=== PATIENT | female | born 1945 | race African-American/Black ===

== ENCOUNTER → 2020-07-04 | Day surgery (SDC) | payer MEDICARE, MEDICAID ==
[~2020-07-04] MED LIST: DIAZEPAM; DIGOXIN; DIOVAN; FENTANYL CITRATE/PF 50MCG/ML 2ML VIAL ONE; HEPARIN SODIUM 1,000 UNIT/1ML VIAL IV ONE; IOHEXOL-300 100 ML BOTTLE ONE; LIDOCAINE HCL 1% 20ML VIAL (Pyxis) INJ ONE; METOPROLOL; MIDAZOLAM HCL 2 MG/2 ML VIAL ONE; NICARDIPINE 100MCG/ML 10ML VIAL (CATH LAB) IV ONE; NITROGLYCERIN 50MCG/ML 10ML VIAL (CATH LAB) IV ONE; VICODIN
== END | disposition home or self-care (01) ==
LOC: CCL 11:54
PROVIDERS: ATTEND Specialist
DX: R07.9 Chest pain, unspecified (principal); I25.10 Atherosclerotic heart disease of native coronary artery without angina pectoris; Z79.899 Other long term (current) drug therapy; Z98.890 Other specified postprocedural states
CPT/HCPCS: 93458; 93571; C1769; C1887; C1893; J1644; J2250; J3010; J3490; Q9967

== ENCOUNTER 2022-06-04 16:45 | Emergency (ER) | payer MEDICARE, MEDICAID ==
[~2022-06-04] VITALS: Ht 160 cm; Wt 77.0 kg
[~2022-06-04 16:45] MED LIST changes: -DIAZEPAM; -DIOVAN; -FENTANYL CITRATE/PF 50MCG/ML 2ML VIAL ONE; -HEPARIN SODIUM 1,000 UNIT/1ML VIAL IV ONE; -IOHEXOL-300 100 ML BOTTLE ONE; -LIDOCAINE HCL 1% 20ML VIAL (Pyxis) INJ ONE; -METOPROLOL; -MIDAZOLAM HCL 2 MG/2 ML VIAL ONE; -NICARDIPINE 100MCG/ML 10ML VIAL (CATH LAB) IV ONE; -NITROGLYCERIN 50MCG/ML 10ML VIAL (CATH LAB) IV ONE
[2022-06-04] MEDS ORDERED: ONDANSETRON HCL 4MG/2ML INJ IV STA (17:08)
[2022-06-04] MEDS ORDERED: MORPHINE SULFATE 4 MG/ML CPJ (NOT FOR IM USE) IV STA (17:08)
[2022-06-04 18:37] LABS: BASOPHILS % 0.5 % (0.0-2.0); EOSINOPHILS % 0.8 % (0.0-5.0); HEMATOCRIT. 37.4 % (36.0-48.0); HEMOGLOBIN. 12.2 g/dL (12.0-16.0); LYMPHOCYTES % 11.3 % (20.0-50.0); MEAN CORPUSCULAR HEMOGLOBIN 27.9 pg (28.0-32.0); MEAN CORPUSCULAR VOLUME 85.8 fL (81.0-99.0); MEAN PLATELET VOLUME 9.8 fl (7.4-10.4); MONOCYTES % 10.7 % (2.0-8.0); NEUTROPHILS % 76.7 % (40.0-76.0); PLATELET 177 x1000/uL (130-400); RED BLOOD CELL COUNT 4.37 mill/uL (4.2-5.4); RED CELL DISTRIBUTION WIDTH 14.5 % (11.6-14.6)
[2022-06-04 18:45] LABS: INR 1.1; PROTHROMBIN TIME 12.1 sec (9.6-11.0)
[2022-06-04 18:50] LABS: CHLORIDE 97 mEq/L (98-107)
[2022-06-04] MEDS ORDERED: POTASSIUM CHLORIDE 20MEQ TABLET SR PO NR (19:15)
[2022-06-04] MEDS ORDERED: HYDR-4001 MT (20:22)
[2022-06-04 21:27] VITALS: BP 139/72
== END 2022-06-04 21:31 | disposition home or self-care (01) ==
LOC: ER 16:45
DX: S43.491A Other sprain of right shoulder joint, initial encounter (principal); M79.671 Pain in right foot; I10 Essential (primary) hypertension; J45.909 Unspecified asthma, uncomplicated; Z98.1 Arthrodesis status; W06.XXXA Fall from bed, initial encounter; Y93.89 Activity, other specified; Y92.018 Other place in single-family (private) house as the place of occurrence of the external cause
CPT/HCPCS: 36415; 70450; 71045; 72125; 73030; 73630; 80053; 85025; 85610; 96374; 96375; 99285; J2270; J2405; A4565

== ENCOUNTER 2023-04-07 20:50 | Inpatient (IN) | payer MEDICARE, MEDICAID ==
[~2023-04-07] VITALS: Ht 154.9 cm; Wt 70.8 kg
[~2023-04-07 20:50] MED LIST changes: +HYDR-4001 MT
[2023-04-07 21:00] VITALS: BP 122/50
[2023-04-07 21:30] VITALS: BP 122/50
[2023-04-07] MEDS: DOCUSATE SODIUM 100MG CAPSULE PO SCH (22:15)
[2023-04-08] MEDS ORDERED: ONDANSETRON HCL 4MG/2ML INJ IV PRN
[2023-04-08] MEDS ORDERED: ACETAMINOPHEN 325MG TABLET PO PRN
[2023-04-08] MEDS ORDERED: CLONIDINE 0.1MG TABLET PO PRN
[2023-04-08] MEDS ORDERED: COR12 MT (00:24)
[2023-04-08] MEDS ORDERED: ATOR-2 PO (00:24)
[2023-04-08] MEDS ORDERED: IRBE300T42 MT (00:24)
[2023-04-08] MEDS ORDERED: OXYCODONE HCL 5MG TABLET PO PRN ×2 (00:45)
[2023-04-08 06:49] LABS: BASOPHILS % 0.6 % (0.0-2.0); EOSINOPHILS % 2.9 % (0.0-5.0); HEMATOCRIT. 37.1 % (36.0-48.0); HEMOGLOBIN. 12.1 g/dL (12.0-16.0); LYMPHOCYTES % 25.6 % (20.0-50.0); MEAN CORPUSCULAR HEMOGLOBIN 27.8 pg (28.0-32.0); MEAN PLATELET VOLUME 9.5 fl (7.4-10.4); MONOCYTES % 8.3 % (2.0-8.0); NEUTROPHILS % 62.6 % (40.0-76.0); PLATELET 184 x1000/uL (130-400); RED BLOOD CELL COUNT 4.37 mill/uL (4.2-5.4); RED CELL DISTRIBUTION WIDTH 14.1 % (11.6-14.6)
[2023-04-08 06:55] LABS: CHLORIDE 108 mEq/L (98-107)
[2023-04-08 08:00] VITALS: BP 133/54
[2023-04-08] MEDS ORDERED: POTASSIUM CHLORIDE 20MEQ/PACKET PO NR (09:00)
[2023-04-08] MEDS: CEFTRIAXONE 1,000 MG in DEXTROSE 5% WATER 50 ML IV SCH (09:00)
[2023-04-08] MEDS ORDERED: CEFTRIAXONE 1GM PREMIX 50 ML IV SCH (09:00)
[2023-04-08] MEDS: CARVEDILOL 12.5MG TABLET PO SCH ×2 (09:24→18:35)
[2023-04-08] MEDS: ASPIRIN 81MG EC TABLET PO SCH (09:25)
[2023-04-08] MEDS: LOSARTAN POTASSIUM 100 MG TABLET PO SCH (09:25)
[2023-04-08] MEDS: DOCUSATE SODIUM 100MG CAPSULE PO SCH ×2 (09:25→18:35)
[2023-04-08] MEDS: AMLODIPINE 10MG TABLET PO SCH (09:25)
[2023-04-08] MEDS: HEPARIN 5000 UNITS/ML VIAL SUBCUT SCH ×2 (09:28→21:59)
[2023-04-08 10:06] LABS: PHOSPHORUS 3.7 mg/dL (2.5-4.9)
[2023-04-08 19:58] VITALS: BP 136/62
[2023-04-08 20:01] VITALS: BP 136/62
[2023-04-08] MEDS: ATORVASTATIN CALCIUM 40MG TABLET PO SCH (21:58)
[2023-04-09 06:14] LABS: BASOPHILS % 0.6 % (0.0-2.0); EOSINOPHILS % 2.9 % (0.0-5.0); HEMATOCRIT. 37.4 % (36.0-48.0); HEMOGLOBIN. 12.3 g/dL (12.0-16.0); LYMPHOCYTES % 24.4 % (20.0-50.0); MEAN CORPUSCULAR HEMOGLOBIN 28.1 pg (28.0-32.0); MEAN CORPUSCULAR VOLUME 85.4 fL (81.0-99.0); MEAN PLATELET VOLUME 9.3 fl (7.4-10.4); MONOCYTES % 8.1 % (2.0-8.0); PLATELET 195 x1000/uL (130-400); RED BLOOD CELL COUNT 4.39 mill/uL (4.2-5.4); RED CELL DISTRIBUTION WIDTH 14.4 % (11.6-14.6)
[2023-04-09 06:22] LABS: CHLORIDE 107 mEq/L (98-107)
[2023-04-09 06:43] LABS: CREATINE KINASE 107 IU/L (26-192)
[2023-04-09 06:57] LABS: VITAMIN B12 SERUM >2000 pg/mL pg/mL (211-911)
[2023-04-09 07:12] LABS: FERRITIN 130 ng/mL (10-291)
[2023-04-09 08:00] VITALS: BP 128/70
[2023-04-09] MEDS ORDERED: POTASSIUM CHLORIDE 20MEQ TABLET SR PO NR (08:00)
[2023-04-09] MEDS ORDERED: NALOXONE HCL 0.4MG/ML VIAL IV PRN (08:00)
[2023-04-09] MEDS: CEFTRIAXONE 1,000 MG in DEXTROSE 5% WATER 50 ML IV SCH (09:00)
[2023-04-09] MEDS: HEPARIN 5000 UNITS/ML VIAL SUBCUT SCH ×2 (09:18→20:14)
[2023-04-09] MEDS: ASPIRIN 81MG EC TABLET PO SCH (09:20)
[2023-04-09] MEDS: DOCUSATE SODIUM 100MG CAPSULE PO SCH ×2 (09:30→17:28)
[2023-04-09] MEDS: CARVEDILOL 12.5MG TABLET PO SCH ×2 (09:30→17:28)
[2023-04-09] MEDS: LOSARTAN POTASSIUM 100 MG TABLET PO SCH (09:30)
[2023-04-09] MEDS: AMLODIPINE 10MG TABLET PO SCH (09:30)
[2023-04-09] MEDS: ACETAMINOPHEN 325MG TABLET PO PRN (17:28)
[2023-04-09 20:00] VITALS: BP 108/43
[2023-04-09] MEDS: ATORVASTATIN CALCIUM 40MG TABLET PO SCH (20:14)
[2023-04-10] MEDS: LEVOTHYROXINE SODIUM 50MCG TABLET PO SCH (07:14)
[2023-04-10 07:59] LABS: BASOPHILS % 0.6 % (0.0-2.0); EOSINOPHILS % 3.7 % (0.0-5.0); HEMATOCRIT. 36.4 % (36.0-48.0); LYMPHOCYTES % 30.7 % (20.0-50.0); MEAN CORPUSCULAR HEMOGLOBIN 28.2 pg (28.0-32.0); MEAN CORPUSCULAR VOLUME 85.3 fL (81.0-99.0); MEAN PLATELET VOLUME 10.7 fl (7.4-10.4); MONOCYTES % 8.4 % (2.0-8.0); NEUTROPHILS % 56.6 % (40.0-76.0); PLATELET 187 x1000/uL (130-400); RED BLOOD CELL COUNT 4.27 mill/uL (4.2-5.4); RED CELL DISTRIBUTION WIDTH 14.6 % (11.6-14.6)
[2023-04-10 08:00] VITALS: BP 115/76
[2023-04-10 08:30] LABS: CHLORIDE 107 mEq/L (98-107); PHOSPHORUS 4.2 mg/dL (2.5-4.9)
[2023-04-10] MEDS: HEPARIN 5000 UNITS/ML VIAL SUBCUT SCH ×2 (10:05→22:01)
[2023-04-10] MEDS: CEFTRIAXONE 1,000 MG in DEXTROSE 5% WATER 50 ML IV SCH (10:05)
[2023-04-10] MEDS: ASPIRIN 81MG EC TABLET PO SCH (10:06)
[2023-04-10] MEDS: DOCUSATE SODIUM 100MG CAPSULE PO SCH ×2 (10:06→18:54)
[2023-04-10] MEDS: LOSARTAN POTASSIUM 100 MG TABLET PO SCH (10:06)
[2023-04-10] MEDS: CARVEDILOL 12.5MG TABLET PO SCH ×2 (10:06→18:54)
[2023-04-10] MEDS: AMLODIPINE 10MG TABLET PO SCH (10:07)
[2023-04-10] MEDS ORDERED: POTASSIUM CHLORIDE 20MEQ TABLET SR PO NR (12:15)
[2023-04-10 20:00] VITALS: BP 116/56
[2023-04-10 20:51] LABS: PHOSPHORUS 3.3 mg/dL (2.5-4.9)
[2023-04-10] MEDS: ATORVASTATIN CALCIUM 40MG TABLET PO SCH (22:00)
[2023-04-11] MEDS: LEVOTHYROXINE SODIUM 50MCG TABLET PO SCH (06:56)
[2023-04-11 07:27] LABS: BASOPHILS % 0.9 % (0.0-2.0); EOSINOPHILS % 4.5 % (0.0-5.0); HEMATOCRIT. 35.5 % (36.0-48.0); HEMOGLOBIN. 11.7 g/dL (12.0-16.0); LYMPHOCYTES % 30.3 % (20.0-50.0); MEAN CORPUSCULAR HEMOGLOBIN 28.2 pg (28.0-32.0); MEAN CORPUSCULAR VOLUME 85.4 fL (81.0-99.0); MEAN PLATELET VOLUME 10.2 fl (7.4-10.4); MONOCYTES % 8.2 % (2.0-8.0); NEUTROPHILS % 56.1 % (40.0-76.0); PLATELET 183 x1000/uL (130-400); RED BLOOD CELL COUNT 4.15 mill/uL (4.2-5.4); RED CELL DISTRIBUTION WIDTH 14.5 % (11.6-14.6)
[2023-04-11 07:54] LABS: CHLORIDE 108 mEq/L (98-107)
[2023-04-11 08:00] VITALS: BP 154/87
[2023-04-11] MEDS ORDERED: POTASSIUM CHLORIDE 20MEQ TABLET SR PO NR (10:15)
[2023-04-11] MEDS: CEFTRIAXONE 1,000 MG in DEXTROSE 5% WATER 50 ML IV SCH (11:36)
[2023-04-11] MEDS: LOSARTAN POTASSIUM 100 MG TABLET PO SCH (11:37)
[2023-04-11] MEDS: ASPIRIN 81MG EC TABLET PO SCH (11:37)
[2023-04-11] MEDS: CARVEDILOL 12.5MG TABLET PO SCH ×2 (11:38→18:35)
[2023-04-11] MEDS: AMLODIPINE 10MG TABLET PO SCH (11:38)
[2023-04-11] MEDS: DOCUSATE SODIUM 100MG CAPSULE PO SCH ×2 (11:39→18:34)
[2023-04-11] MEDS: HEPARIN 5000 UNITS/ML VIAL SUBCUT SCH ×2 (11:40→20:20)
[2023-04-11 20:00] VITALS: BP 124/72
[2023-04-11] MEDS: ATORVASTATIN CALCIUM 40MG TABLET PO SCH (20:20)
[2023-04-12] MEDS: LEVOTHYROXINE SODIUM 50MCG TABLET PO SCH (06:07)
[2023-04-12 06:13] LABS: BASOPHILS % 1.1 % (0.0-2.0); EOSINOPHILS % 3.9 % (0.0-5.0); HEMATOCRIT. 35.2 % (36.0-48.0); HEMOGLOBIN. 11.8 g/dL (12.0-16.0); LYMPHOCYTES % 31.5 % (20.0-50.0); MEAN CORPUSCULAR HEMOGLOBIN 28.6 pg (28.0-32.0); MEAN CORPUSCULAR VOLUME 85.5 fL (81.0-99.0); MEAN PLATELET VOLUME 9.7 fl (7.4-10.4); MONOCYTES % 7.6 % (2.0-8.0); NEUTROPHILS % 55.9 % (40.0-76.0); PLATELET 188 x1000/uL (130-400); RED BLOOD CELL COUNT 4.12 mill/uL (4.2-5.4); RED CELL DISTRIBUTION WIDTH 14.2 % (11.6-14.6)
[2023-04-12 06:33] LABS: CHLORIDE 109 mEq/L (98-107)
[2023-04-12 08:00] VITALS: BP 140/79
[2023-04-12] MEDS: LOSARTAN POTASSIUM 100 MG TABLET PO SCH (08:43)
[2023-04-12] MEDS: AMLODIPINE 10MG TABLET PO SCH (08:44)
[2023-04-12] MEDS: DOCUSATE SODIUM 100MG CAPSULE PO SCH ×2 (08:53→16:52)
[2023-04-12] MEDS: ASPIRIN 81MG EC TABLET PO SCH (08:53)
[2023-04-12] MEDS: CARVEDILOL 12.5MG TABLET PO SCH ×2 (08:54→16:58)
[2023-04-12] MEDS: HEPARIN 5000 UNITS/ML VIAL SUBCUT SCH (08:56)
[2023-04-12] MEDS: CEFTRIAXONE 1,000 MG in DEXTROSE 5% WATER 50 ML IV SCH (08:56)
[2023-04-12] MEDS: APIXABAN 5 MG TABLET PO SCH (16:53)
[2023-04-12 19:55] VITALS: BP 122/64
[2023-04-12] MEDS: ATORVASTATIN CALCIUM 40MG TABLET PO SCH (21:13)
[2023-04-13] MEDS: LEVOTHYROXINE SODIUM 50MCG TABLET PO SCH (06:28)
[2023-04-13 08:00] VITALS: BP 107/49
[2023-04-13] MEDS: LOSARTAN POTASSIUM 100 MG TABLET PO SCH (09:00)
[2023-04-13] MEDS: CARVEDILOL 12.5MG TABLET PO SCH ×2 (09:00→17:00)
[2023-04-13] MEDS: AMLODIPINE 10MG TABLET PO SCH (09:00)
[2023-04-13] MEDS: CEFTRIAXONE 1,000 MG in DEXTROSE 5% WATER 50 ML IV SCH (10:30)
[2023-04-13] MEDS: APIXABAN 5 MG TABLET PO SCH (10:31)
[2023-04-13] MEDS: DOCUSATE SODIUM 100MG CAPSULE PO SCH ×2 (10:32→17:58)
[2023-04-13] MEDS: ASPIRIN 81MG EC TABLET PO SCH (10:36)
[2023-04-13 17:13] LABS: BASOPHILS % 0.4 % (0.0-2.0); EOSINOPHILS % 3.3 % (0.0-5.0); HEMATOCRIT. 37.2 % (36.0-48.0); LYMPHOCYTES % 25.2 % (20.0-50.0); MEAN PLATELET VOLUME 9.4 fl (7.4-10.4); MONOCYTES % 7.5 % (2.0-8.0); NEUTROPHILS % 63.6 % (40.0-76.0); PLATELET 177 x1000/uL (130-400); RED BLOOD CELL COUNT 4.28 mill/uL (4.2-5.4); RED CELL DISTRIBUTION WIDTH 14.8 % (11.6-14.6)
[2023-04-13 17:21] LABS: CHLORIDE 108 mEq/L (98-107)
[2023-04-13] MEDS: APIXABAN 2.5 MG TABLET PO SCH (17:58)
[2023-04-13 19:46] VITALS: BP 121/67
[2023-04-13] MEDS: ATORVASTATIN CALCIUM 40MG TABLET PO SCH (21:59)
[2023-04-14 06:19] LABS: BASOPHILS % 0.8 % (0.0-2.0); EOSINOPHILS % 4.1 % (0.0-5.0); HEMOGLOBIN. 11.3 g/dL (12.0-16.0); MEAN CORPUSCULAR HEMOGLOBIN 28.5 pg (28.0-32.0); MEAN CORPUSCULAR VOLUME 85.7 fL (81.0-99.0); MEAN PLATELET VOLUME 9.5 fl (7.4-10.4); MONOCYTES % 6.6 % (2.0-8.0); NEUTROPHILS % 63.5 % (40.0-76.0); PLATELET 169 x1000/uL (130-400); RED BLOOD CELL COUNT 3.97 mill/uL (4.2-5.4); RED CELL DISTRIBUTION WIDTH 14.6 % (11.6-14.6)
[2023-04-14 06:41] LABS: CHLORIDE 110 mEq/L (98-107)
[2023-04-14] MEDS: LEVOTHYROXINE SODIUM 50MCG TABLET PO SCH (07:52)
[2023-04-14 08:00] VITALS: BP 123/68
[2023-04-14] MEDS ORDERED: POTASSIUM CHLORIDE 20MEQ TABLET SR PO NR (08:15)
[2023-04-14] MEDS: APIXABAN 2.5 MG TABLET PO SCH ×2 (09:31→17:41)
[2023-04-14] MEDS: ASPIRIN 81MG EC TABLET PO SCH (09:31)
[2023-04-14] MEDS: LOSARTAN POTASSIUM 100 MG TABLET PO SCH (09:31)
[2023-04-14] MEDS: CARVEDILOL 12.5MG TABLET PO SCH ×2 (09:32→17:41)
[2023-04-14] MEDS: DOCUSATE SODIUM 100MG CAPSULE PO SCH ×2 (09:32→17:37)
[2023-04-14] MEDS: AMLODIPINE 10MG TABLET PO SCH (09:32)
[2023-04-14] MEDS ORDERED: POTASSIUM CHLORIDE 20MEQ/PACKET PO NR (11:30)
[2023-04-14] MEDS ORDERED: AMLO10TA80 PO (16:51)
[2023-04-14] MEDS ORDERED: FAMO20TA8 PO (16:51)
[2023-04-14] MEDS ORDERED: ERGO1250 PO (16:52)
[2023-04-14] MEDS ORDERED: LEVO50TA8 PO (16:53)
[2023-04-14] MEDS ORDERED: METO100T16 PO (16:53)
[2023-04-14] MEDS ORDERED: HYDR25TA PO (16:54)
[2023-04-14] MEDS ORDERED: ATOR10TA PO (16:54)
[2023-04-14 20:00] VITALS: BP 111/47
[2023-04-14] MEDS: ATORVASTATIN CALCIUM 40MG TABLET PO SCH (20:24)
[2023-04-15] MEDS: LEVOTHYROXINE SODIUM 50MCG TABLET PO SCH (06:02)
[2023-04-15 06:33] LABS: BASOPHILS % 0.6 % (0.0-2.0); EOSINOPHILS % 3.3 % (0.0-5.0); HEMATOCRIT. 34.5 % (36.0-48.0); HEMOGLOBIN. 11.5 g/dL (12.0-16.0); LYMPHOCYTES % 26.9 % (20.0-50.0); MEAN CORPUSCULAR HEMOGLOBIN 28.4 pg (28.0-32.0); MEAN CORPUSCULAR VOLUME 85.6 fL (81.0-99.0); MEAN PLATELET VOLUME 9.7 fl (7.4-10.4); MONOCYTES % 5.4 % (2.0-8.0); NEUTROPHILS % 63.8 % (40.0-76.0); PLATELET 166 x1000/uL (130-400); RED BLOOD CELL COUNT 4.03 mill/uL (4.2-5.4); RED CELL DISTRIBUTION WIDTH 14.8 % (11.6-14.6)
[2023-04-15 07:01] LABS: CHLORIDE 110 mEq/L (98-107)
[2023-04-15 08:00] VITALS: BP 122/70
[2023-04-15] MEDS: APIXABAN 2.5 MG TABLET PO SCH (08:30)
[2023-04-15] MEDS: ASPIRIN 81MG EC TABLET PO SCH (08:30)
[2023-04-15] MEDS: DOCUSATE SODIUM 100MG CAPSULE PO SCH ×2 (08:30→18:32)
[2023-04-15] MEDS: LOSARTAN POTASSIUM 100 MG TABLET PO SCH (08:30)
[2023-04-15] MEDS: AMLODIPINE 10MG TABLET PO SCH (08:31)
[2023-04-15] MEDS: CARVEDILOL 12.5MG TABLET PO SCH ×2 (08:32→18:32)
[2023-04-15] MEDS: LACTULOSE 20G/30ML UDC PO PRN (18:32)
[2023-04-15] MEDS: APIXABAN 5 MG TABLET PO SCH (18:32)
[2023-04-15 19:50] VITALS: BP 128/78
[2023-04-15] MEDS: ATORVASTATIN CALCIUM 40MG TABLET PO SCH (20:56)
[2023-04-16] MEDS: LEVOTHYROXINE SODIUM 50MCG TABLET PO SCH (06:30)
[2023-04-16 06:54] LABS: BASOPHILS % 0.6 % (0.0-2.0); EOSINOPHILS % 2.9 % (0.0-5.0); HEMATOCRIT. 35.4 % (36.0-48.0); HEMOGLOBIN. 11.4 g/dL (12.0-16.0); LYMPHOCYTES % 19.8 % (20.0-50.0); MEAN CORPUSCULAR HEMOGLOBIN 27.9 pg (28.0-32.0); MEAN CORPUSCULAR VOLUME 86.2 fL (81.0-99.0); MEAN PLATELET VOLUME 9.9 fl (7.4-10.4); MONOCYTES % 5.7 % (2.0-8.0); PLATELET 160 x1000/uL (130-400); RED CELL DISTRIBUTION WIDTH 14.5 % (11.6-14.6)
[2023-04-16 07:24] LABS: CHLORIDE 111 mEq/L (98-107)
[2023-04-16] MEDS ORDERED: POTASSIUM CHLORIDE 20MEQ TABLET SR PO NR (07:45)
[2023-04-16 08:24] VITALS: BP 136/62
[2023-04-16] MEDS: DOCUSATE SODIUM 100MG CAPSULE PO SCH ×2 (10:09→18:04)
[2023-04-16] MEDS: LOSARTAN POTASSIUM 100 MG TABLET PO SCH (10:10)
[2023-04-16] MEDS: CARVEDILOL 12.5MG TABLET PO SCH ×2 (10:10→17:00)
[2023-04-16] MEDS: ASPIRIN 81MG EC TABLET PO SCH (10:11)
[2023-04-16] MEDS: AMLODIPINE 10MG TABLET PO SCH (10:11)
[2023-04-16] MEDS: APIXABAN 5 MG TABLET PO SCH ×2 (10:11→17:00)
[2023-04-16 20:00] VITALS: BP 114/68
[2023-04-16] MEDS: ATORVASTATIN CALCIUM 40MG TABLET PO SCH ×2 (21:55→22:05)
[2023-04-17] MEDS: LEVOTHYROXINE SODIUM 50MCG TABLET PO SCH (06:31)
[2023-04-17 08:00] VITALS: BP 110/60
[2023-04-17] MEDS: APIXABAN 5 MG TABLET PO SCH ×2 (09:02→17:22)
[2023-04-17] MEDS: DOCUSATE SODIUM 100MG CAPSULE PO SCH ×2 (09:02→17:22)
[2023-04-17] MEDS: ASPIRIN 81MG EC TABLET PO SCH (09:02)
[2023-04-17] MEDS: LOSARTAN POTASSIUM 100 MG TABLET PO SCH (09:03)
[2023-04-17] MEDS: CARVEDILOL 12.5MG TABLET PO SCH ×2 (09:03→17:26)
[2023-04-17] MEDS: AMLODIPINE 10MG TABLET PO SCH (09:04)
[2023-04-17 20:00] VITALS: BP 96/44
[2023-04-17] MEDS: ATORVASTATIN CALCIUM 40MG TABLET PO SCH (22:10)
[2023-04-17 23:20] VITALS: BP 110/66
[2023-04-18] MEDS: LEVOTHYROXINE SODIUM 50MCG TABLET PO SCH (06:53)
[2023-04-18 07:55] LABS: BASOPHILS % 0.7 % (0.0-2.0); EOSINOPHILS % 3.1 % (0.0-5.0); HEMATOCRIT. 34.9 % (36.0-48.0); HEMOGLOBIN. 11.4 g/dL (12.0-16.0); LYMPHOCYTES % 23.4 % (20.0-50.0); MEAN CORPUSCULAR HEMOGLOBIN 28.2 pg (28.0-32.0); MEAN PLATELET VOLUME 9.5 fl (7.4-10.4); MONOCYTES % 5.8 % (2.0-8.0); PLATELET 160 x1000/uL (130-400); RED BLOOD CELL COUNT 4.05 mill/uL (4.2-5.4); RED CELL DISTRIBUTION WIDTH 14.7 % (11.6-14.6)
[2023-04-18 08:00] VITALS: BP 147/79
[2023-04-18] MEDS: LOSARTAN POTASSIUM 100 MG TABLET PO SCH (08:21)
[2023-04-18] MEDS: APIXABAN 5 MG TABLET PO SCH ×2 (08:21→16:53)
[2023-04-18] MEDS: ASPIRIN 81MG EC TABLET PO SCH (08:21)
[2023-04-18] MEDS: DOCUSATE SODIUM 100MG CAPSULE PO SCH ×2 (08:21→16:53)
[2023-04-18] MEDS: AMLODIPINE 10MG TABLET PO SCH (08:21)
[2023-04-18] MEDS: CARVEDILOL 12.5MG TABLET PO SCH ×2 (08:22→16:52)
[2023-04-18 09:00] LABS: CHLORIDE 110 mEq/L (98-107)
[2023-04-18 20:00] VITALS: BP 112/70
[2023-04-18] MEDS: ATORVASTATIN CALCIUM 40MG TABLET PO SCH (21:03)
[2023-04-19 05:52] LABS: CHLORIDE 112 mEq/L (98-107)
[2023-04-19 06:13] LABS: BASOPHILS % 0.7 % (0.0-2.0); EOSINOPHILS % 2.9 % (0.0-5.0); HEMOGLOBIN. 10.8 g/dL (12.0-16.0); LYMPHOCYTES % 23.6 % (20.0-50.0); MEAN CORPUSCULAR HEMOGLOBIN 28.9 pg (28.0-32.0); MEAN CORPUSCULAR VOLUME 85.5 fL (81.0-99.0); MEAN PLATELET VOLUME 9.7 fl (7.4-10.4); MONOCYTES % 5.7 % (2.0-8.0); NEUTROPHILS % 67.1 % (40.0-76.0); PLATELET 158 x1000/uL (130-400); RED BLOOD CELL COUNT 3.75 mill/uL (4.2-5.4); RED CELL DISTRIBUTION WIDTH 14.6 % (11.6-14.6)
[2023-04-19] MEDS: LEVOTHYROXINE SODIUM 50MCG TABLET PO SCH (06:22)
[2023-04-19 08:00] VITALS: BP 126/55
[2023-04-19] MEDS: ASPIRIN 81MG EC TABLET PO SCH (08:59)
[2023-04-19] MEDS: DOCUSATE SODIUM 100MG CAPSULE PO SCH ×2 (08:59→17:14)
[2023-04-19] MEDS: APIXABAN 5 MG TABLET PO SCH ×2 (08:59→17:14)
[2023-04-19] MEDS: CARVEDILOL 12.5MG TABLET PO SCH ×2 (09:00→17:00)
[2023-04-19] MEDS: AMLODIPINE 10MG TABLET PO SCH (09:00)
[2023-04-19] MEDS: LOSARTAN POTASSIUM 100 MG TABLET PO SCH (09:00)
[2023-04-19] MEDS: POLYETHYLENE GLYCOL 3350 (17GM) 1 DOSE PACK PO SCH (12:55)
[2023-04-19 20:00] VITALS: BP 117/68
[2023-04-19] MEDS: ATORVASTATIN CALCIUM 40MG TABLET PO SCH (21:24)
[2023-04-19] MEDS: SENNOSIDES/DOCUSATE SOD 8.6/50MG TABLET PO SCH (21:25)
[2023-04-20] MEDS: LEVOTHYROXINE SODIUM 50MCG TABLET PO SCH (05:39)
[2023-04-20 05:47] LABS: BASOPHILS % 0.5 % (0.0-2.0); EOSINOPHILS % 1.8 % (0.0-5.0); HEMATOCRIT. 33.1 % (36.0-48.0); HEMOGLOBIN. 10.9 g/dL (12.0-16.0); LYMPHOCYTES % 18.6 % (20.0-50.0); MEAN CORPUSCULAR HEMOGLOBIN 28.1 pg (28.0-32.0); MEAN CORPUSCULAR VOLUME 85.5 fL (81.0-99.0); MEAN PLATELET VOLUME 9.8 fl (7.4-10.4); MONOCYTES % 5.7 % (2.0-8.0); NEUTROPHILS % 73.4 % (40.0-76.0); PLATELET 171 x1000/uL (130-400); RED BLOOD CELL COUNT 3.88 mill/uL (4.2-5.4); RED CELL DISTRIBUTION WIDTH 14.7 % (11.6-14.6)
[2023-04-20 06:19] LABS: CHLORIDE 112 mEq/L (98-107)
[2023-04-20 08:00] VITALS: BP 137/72
[2023-04-20] MEDS: DOCUSATE SODIUM 100MG CAPSULE PO SCH ×2 (08:22→17:34)
[2023-04-20] MEDS: LOSARTAN POTASSIUM 100 MG TABLET PO SCH (08:22)
[2023-04-20] MEDS: ASPIRIN 81MG EC TABLET PO SCH (08:23)
[2023-04-20] MEDS: AMLODIPINE 10MG TABLET PO SCH (08:23)
[2023-04-20] MEDS: APIXABAN 5 MG TABLET PO SCH ×2 (08:24→17:34)
[2023-04-20] MEDS: ACETAMINOPHEN 325MG TABLET PO PRN (08:24)
[2023-04-20] MEDS: POLYETHYLENE GLYCOL 3350 (17GM) 1 DOSE PACK PO SCH (08:24)
[2023-04-20] MEDS: CARVEDILOL 12.5MG TABLET PO SCH ×2 (08:24→17:34)
[2023-04-20] MEDS ORDERED: POTASSIUM CHLORIDE 20MEQ TABLET SR PO NR (09:00)
[2023-04-20 20:03] VITALS: BP 103/52
[2023-04-20] MEDS: ATORVASTATIN CALCIUM 40MG TABLET PO SCH (21:39)
[2023-04-20] MEDS: SENNOSIDES/DOCUSATE SOD 8.6/50MG TABLET PO SCH (21:39)
[2023-04-21 06:47] LABS: BASOPHILS % 0.5 % (0.0-2.0); HEMATOCRIT. 32.3 % (36.0-48.0); HEMOGLOBIN. 10.6 g/dL (12.0-16.0); LYMPHOCYTES % 22.7 % (20.0-50.0); MEAN CORPUSCULAR HEMOGLOBIN 28.2 pg (28.0-32.0); MEAN CORPUSCULAR VOLUME 85.9 fL (81.0-99.0); MEAN PLATELET VOLUME 9.7 fl (7.4-10.4); MONOCYTES % 5.6 % (2.0-8.0); NEUTROPHILS % 68.2 % (40.0-76.0); PLATELET 154 x1000/uL (130-400); RED BLOOD CELL COUNT 3.76 mill/uL (4.2-5.4); RED CELL DISTRIBUTION WIDTH 14.8 % (11.6-14.6)
[2023-04-21] MEDS: LEVOTHYROXINE SODIUM 50MCG TABLET PO SCH (07:04)
[2023-04-21 07:35] LABS: CHLORIDE 112 mEq/L (98-107)
[2023-04-21 08:00] VITALS: BP 121/54
[2023-04-21] MEDS: LOSARTAN POTASSIUM 100 MG TABLET PO SCH (09:14)
[2023-04-21] MEDS: DOCUSATE SODIUM 100MG CAPSULE PO SCH ×2 (09:14→17:28)
[2023-04-21] MEDS: AMLODIPINE 10MG TABLET PO SCH (09:14)
[2023-04-21] MEDS: ASPIRIN 81MG EC TABLET PO SCH (09:14)
[2023-04-21] MEDS: LACTULOSE 20G/30ML UDC PO PRN (09:14)
[2023-04-21] MEDS: APIXABAN 5 MG TABLET PO SCH ×2 (09:14→17:28)
[2023-04-21] MEDS: POLYETHYLENE GLYCOL 3350 (17GM) 1 DOSE PACK PO SCH (09:14)
[2023-04-21] MEDS: CARVEDILOL 12.5MG TABLET PO SCH ×2 (09:15→17:31)
[2023-04-21 19:59] VITALS: BP 114/54
[2023-04-21] MEDS: SENNOSIDES/DOCUSATE SOD 8.6/50MG TABLET PO SCH (21:43)
[2023-04-21] MEDS: ATORVASTATIN CALCIUM 40MG TABLET PO SCH (21:43)
[2023-04-22] MEDS: LEVOTHYROXINE SODIUM 50MCG TABLET PO SCH (06:34)
[2023-04-22 08:00] VITALS: BP 119/46
[2023-04-22] MEDS: POLYETHYLENE GLYCOL 3350 (17GM) 1 DOSE PACK PO SCH (08:44)
[2023-04-22] MEDS: DOCUSATE SODIUM 100MG CAPSULE PO SCH ×2 (08:48→16:32)
[2023-04-22] MEDS: ASPIRIN 81MG EC TABLET PO SCH (08:48)
[2023-04-22] MEDS: APIXABAN 5 MG TABLET PO SCH ×2 (08:48→16:32)
[2023-04-22] MEDS: CARVEDILOL 12.5MG TABLET PO SCH ×2 (08:50→16:38)
[2023-04-22] MEDS: LOSARTAN POTASSIUM 100 MG TABLET PO SCH (08:51)
[2023-04-22] MEDS: AMLODIPINE 10MG TABLET PO SCH (08:51)
[2023-04-22 20:00] VITALS: BP 116/55
[2023-04-22] MEDS: SENNOSIDES/DOCUSATE SOD 8.6/50MG TABLET PO SCH (21:50)
[2023-04-22] MEDS: ATORVASTATIN CALCIUM 40MG TABLET PO SCH (21:50)
[2023-04-23] MEDS: LEVOTHYROXINE SODIUM 50MCG TABLET PO SCH (06:24)
[2023-04-23 08:00] VITALS: BP 140/82
[2023-04-23] MEDS: APIXABAN 5 MG TABLET PO SCH ×2 (08:16→17:20)
[2023-04-23] MEDS: AMLODIPINE 10MG TABLET PO SCH (08:16)
[2023-04-23] MEDS: ASPIRIN 81MG EC TABLET PO SCH (08:16)
[2023-04-23] MEDS: DOCUSATE SODIUM 100MG CAPSULE PO SCH ×2 (08:16→17:20)
[2023-04-23] MEDS: LOSARTAN POTASSIUM 100 MG TABLET PO SCH (08:17)
[2023-04-23] MEDS: POLYETHYLENE GLYCOL 3350 (17GM) 1 DOSE PACK PO SCH (08:17)
[2023-04-23] MEDS: CARVEDILOL 12.5MG TABLET PO SCH ×2 (08:17→17:00)
[2023-04-23 20:00] VITALS: BP 111/54
[2023-04-23] MEDS: SENNOSIDES/DOCUSATE SOD 8.6/50MG TABLET PO SCH (20:56)
[2023-04-23] MEDS: ATORVASTATIN CALCIUM 40MG TABLET PO SCH (20:56)
[2023-04-24] MEDS: LEVOTHYROXINE SODIUM 50MCG TABLET PO SCH (05:54)
[2023-04-24 08:00] VITALS: BP 105/61
[2023-04-24] MEDS: DOCUSATE SODIUM 100MG CAPSULE PO SCH ×2 (09:28→18:24)
[2023-04-24] MEDS: ASPIRIN 81MG EC TABLET PO SCH (09:28)
[2023-04-24] MEDS: POLYETHYLENE GLYCOL 3350 (17GM) 1 DOSE PACK PO SCH (09:28)
[2023-04-24] MEDS: LOSARTAN POTASSIUM 100 MG TABLET PO SCH (09:29)
[2023-04-24] MEDS: AMLODIPINE 10MG TABLET PO SCH (09:29)
[2023-04-24] MEDS: APIXABAN 5 MG TABLET PO SCH ×2 (09:30→18:25)
[2023-04-24] MEDS: CARVEDILOL 12.5MG TABLET PO SCH ×2 (09:30→18:29)
[2023-04-24 20:00] VITALS: BP 130/59
[2023-04-24] MEDS: ATORVASTATIN CALCIUM 40MG TABLET PO SCH (20:48)
[2023-04-24] MEDS: SENNOSIDES/DOCUSATE SOD 8.6/50MG TABLET PO SCH (20:48)
[2023-04-25] MEDS: LEVOTHYROXINE SODIUM 50MCG TABLET PO SCH (06:56)
[2023-04-25 07:45] LABS: BASOPHILS % 0.5 % (0.0-2.0); EOSINOPHILS % 2.2 % (0.0-5.0); HEMATOCRIT. 33.9 % (36.0-48.0); HEMOGLOBIN. 11.2 g/dL (12.0-16.0); LYMPHOCYTES % 20.6 % (20.0-50.0); MEAN CORPUSCULAR HEMOGLOBIN 28.3 pg (28.0-32.0); MEAN CORPUSCULAR VOLUME 85.3 fL (81.0-99.0); MEAN PLATELET VOLUME 9.7 fl (7.4-10.4); MONOCYTES % 5.6 % (2.0-8.0); NEUTROPHILS % 71.1 % (40.0-76.0); PLATELET 184 x1000/uL (130-400); RED BLOOD CELL COUNT 3.97 mill/uL (4.2-5.4); RED CELL DISTRIBUTION WIDTH 14.7 % (11.6-14.6)
[2023-04-25 07:52] LABS: CHLORIDE 109 mEq/L (98-107)
[2023-04-25 08:00] VITALS: BP 105/65
[2023-04-25] MEDS: CARVEDILOL 12.5MG TABLET PO SCH ×2 (08:49→18:18)
[2023-04-25] MEDS: DOCUSATE SODIUM 100MG CAPSULE PO SCH ×2 (08:49→18:13)
[2023-04-25] MEDS: POLYETHYLENE GLYCOL 3350 (17GM) 1 DOSE PACK PO SCH (08:49)
[2023-04-25] MEDS: ASPIRIN 81MG EC TABLET PO SCH (08:49)
[2023-04-25] MEDS: LOSARTAN POTASSIUM 100 MG TABLET PO SCH (08:49)
[2023-04-25] MEDS: APIXABAN 5 MG TABLET PO SCH ×2 (08:49→18:13)
[2023-04-25] MEDS: AMLODIPINE 10MG TABLET PO SCH (08:50)
[2023-04-25] MEDS ORDERED: POTASSIUM CHLORIDE 20MEQ TABLET SR PO NR (10:00)
[2023-04-25 19:58] VITALS: BP 126/58
[2023-04-25] MEDS: SENNOSIDES/DOCUSATE SOD 8.6/50MG TABLET PO SCH (20:15)
[2023-04-25] MEDS: ATORVASTATIN CALCIUM 40MG TABLET PO SCH (20:15)
[2023-04-26] MEDS: LEVOTHYROXINE SODIUM 50MCG TABLET PO SCH (06:16)
[2023-04-26 08:00] VITALS: BP 128/71
[2023-04-26] MEDS: POLYETHYLENE GLYCOL 3350 (17GM) 1 DOSE PACK PO SCH (09:00)
[2023-04-26] MEDS: AMLODIPINE 10MG TABLET PO SCH (09:03)
[2023-04-26] MEDS: APIXABAN 5 MG TABLET PO SCH ×2 (09:04→16:35)
[2023-04-26] MEDS: CARVEDILOL 12.5MG TABLET PO SCH ×2 (09:04→16:36)
[2023-04-26] MEDS: ASPIRIN 81MG EC TABLET PO SCH (09:04)
[2023-04-26] MEDS: DOCUSATE SODIUM 100MG CAPSULE PO SCH ×2 (09:04→16:34)
[2023-04-26] MEDS: LOSARTAN POTASSIUM 100 MG TABLET PO SCH (09:04)
[2023-04-26] MEDS ORDERED: POTASSIUM CHLORIDE 20MEQ TABLET SR PO NR (09:30)
[2023-04-26 20:00] VITALS: BP 112/62
[2023-04-26] MEDS: SENNOSIDES/DOCUSATE SOD 8.6/50MG TABLET PO SCH (21:27)
[2023-04-26] MEDS: ATORVASTATIN CALCIUM 40MG TABLET PO SCH (21:27)
[2023-04-27] MEDS: LEVOTHYROXINE SODIUM 50MCG TABLET PO SCH (06:38)
[2023-04-27 06:46] LABS: BASOPHILS % 0.5 % (0.0-2.0); HEMATOCRIT. 30.5 % (36.0-48.0); HEMOGLOBIN. 10.4 g/dL (12.0-16.0); LYMPHOCYTES % 18.9 % (20.0-50.0); MEAN CORPUSCULAR HEMOGLOBIN 28.9 pg (28.0-32.0); MEAN CORPUSCULAR VOLUME 85.2 fL (81.0-99.0); MEAN PLATELET VOLUME 10.1 fl (7.4-10.4); MONOCYTES % 5.3 % (2.0-8.0); NEUTROPHILS % 73.3 % (40.0-76.0); PLATELET 164 x1000/uL (130-400); RED BLOOD CELL COUNT 3.58 mill/uL (4.2-5.4); RED CELL DISTRIBUTION WIDTH 14.5 % (11.6-14.6)
[2023-04-27 07:57] LABS: CHLORIDE 109 mEq/L (98-107)
[2023-04-27 08:00] VITALS: BP 125/78
[2023-04-27] MEDS: DOCUSATE SODIUM 100MG CAPSULE PO SCH ×2 (08:52→17:40)
[2023-04-27] MEDS: ASPIRIN 81MG EC TABLET PO SCH (08:52)
[2023-04-27] MEDS: LOSARTAN POTASSIUM 100 MG TABLET PO SCH (08:52)
[2023-04-27] MEDS: APIXABAN 5 MG TABLET PO SCH ×2 (08:52→17:39)
[2023-04-27] MEDS: POLYETHYLENE GLYCOL 3350 (17GM) 1 DOSE PACK PO SCH (08:53)
[2023-04-27] MEDS: CARVEDILOL 12.5MG TABLET PO SCH ×2 (08:54→17:44)
[2023-04-27] MEDS: AMLODIPINE 10MG TABLET PO SCH (08:55)
[2023-04-27] MEDS ORDERED: POTASSIUM CHLORIDE 20MEQ TABLET SR PO SCH (09:00)
[2023-04-27] MEDS: MAGNESIUM GLUCONATE 500MG TABLET PO SCH (11:53)
[2023-04-27] MEDS ORDERED: POTASSIUM CHLORIDE 20MEQ/PACKET PO NR (14:15)
[2023-04-27] MEDS ORDERED: MAGNESIUM 2 G PREMIX 50 ML IV NR (15:00)
[2023-04-27 20:00] VITALS: BP 117/72
[2023-04-27] MEDS: SENNOSIDES/DOCUSATE SOD 8.6/50MG TABLET PO SCH (21:33)
[2023-04-27] MEDS: ATORVASTATIN CALCIUM 40MG TABLET PO SCH (21:33)
[2023-04-28] MEDS: LEVOTHYROXINE SODIUM 50MCG TABLET PO SCH (06:17)
[2023-04-28 06:31] LABS: BASOPHILS % 0.4 % (0.0-2.0); EOSINOPHILS % 2.7 % (0.0-5.0); HEMATOCRIT. 32.1 % (36.0-48.0); HEMOGLOBIN. 10.6 g/dL (12.0-16.0); LYMPHOCYTES % 20.3 % (20.0-50.0); MEAN CORPUSCULAR HEMOGLOBIN 28.6 pg (28.0-32.0); MEAN PLATELET VOLUME 10.1 fl (7.4-10.4); MONOCYTES % 5.3 % (2.0-8.0); NEUTROPHILS % 71.3 % (40.0-76.0); PLATELET 138 x1000/uL (130-400); RED BLOOD CELL COUNT 3.69 mill/uL (4.2-5.4); RED CELL DISTRIBUTION WIDTH 14.7 % (11.6-14.6)
[2023-04-28 06:39] LABS: CHLORIDE 112 mEq/L (98-107)
[2023-04-28 06:44] LABS: PHOSPHORUS 3.6 mg/dL (2.5-4.9)
[2023-04-28 08:00] VITALS: BP 135/75
[2023-04-28] MEDS: APIXABAN 5 MG TABLET PO SCH ×2 (08:35→17:40)
[2023-04-28] MEDS: MAGNESIUM GLUCONATE 500MG TABLET PO SCH (08:35)
[2023-04-28] MEDS: DOCUSATE SODIUM 100MG CAPSULE PO SCH ×2 (08:35→17:40)
[2023-04-28] MEDS: ASPIRIN 81MG EC TABLET PO SCH (08:35)
[2023-04-28] MEDS: POLYETHYLENE GLYCOL 3350 (17GM) 1 DOSE PACK PO SCH (08:36)
[2023-04-28] MEDS: AMLODIPINE 10MG TABLET PO SCH (08:36)
[2023-04-28] MEDS: LOSARTAN POTASSIUM 100 MG TABLET PO SCH (08:36)
[2023-04-28] MEDS: CARVEDILOL 12.5MG TABLET PO SCH ×2 (08:36→17:40)
[2023-04-28 20:00] VITALS: BP 110/63
[2023-04-28] MEDS: SENNOSIDES/DOCUSATE SOD 8.6/50MG TABLET PO SCH (21:10)
[2023-04-28] MEDS: ATORVASTATIN CALCIUM 40MG TABLET PO SCH (21:10)
[2023-04-29] MEDS: LEVOTHYROXINE SODIUM 50MCG TABLET PO SCH (06:09)
[2023-04-29 08:00] VITALS: BP 125/61
[2023-04-29] MEDS: MAGNESIUM GLUCONATE 500MG TABLET PO SCH (08:12)
[2023-04-29] MEDS: ASPIRIN 81MG EC TABLET PO SCH (08:12)
[2023-04-29] MEDS: LOSARTAN POTASSIUM 100 MG TABLET PO SCH (08:13)
[2023-04-29] MEDS: DOCUSATE SODIUM 100MG CAPSULE PO SCH ×2 (08:13→16:44)
[2023-04-29] MEDS: APIXABAN 5 MG TABLET PO SCH (08:14)
[2023-04-29] MEDS: CARVEDILOL 12.5MG TABLET PO SCH ×2 (08:14→16:46)
[2023-04-29] MEDS: AMLODIPINE 10MG TABLET PO SCH (08:15)
[2023-04-29] MEDS: POLYETHYLENE GLYCOL 3350 (17GM) 1 DOSE PACK PO SCH (08:16)
[2023-04-29 20:00] VITALS: BP 94/34
[2023-04-29] MEDS: ATORVASTATIN CALCIUM 40MG TABLET PO SCH (21:47)
[2023-04-29] MEDS: SENNOSIDES/DOCUSATE SOD 8.6/50MG TABLET PO SCH (21:47)
[2023-04-30] MEDS: LEVOTHYROXINE SODIUM 50MCG TABLET PO SCH (06:46)
[2023-04-30 08:00] VITALS: BP 126/75
[2023-04-30] MEDS: POLYETHYLENE GLYCOL 3350 (17GM) 1 DOSE PACK PO SCH ×2 (08:37→08:45)
[2023-04-30] MEDS: MAGNESIUM GLUCONATE 500MG TABLET PO SCH (08:38)
[2023-04-30] MEDS: ASPIRIN 81MG EC TABLET PO SCH (08:38)
[2023-04-30] MEDS: AMLODIPINE 10MG TABLET PO SCH (08:38)
[2023-04-30] MEDS: DOCUSATE SODIUM 100MG CAPSULE PO SCH (08:38)
[2023-04-30] MEDS: LOSARTAN POTASSIUM 100 MG TABLET PO SCH (08:39)
[2023-04-30] MEDS: CARVEDILOL 12.5MG TABLET PO SCH (08:39)
[2023-04-30 10:28] VITALS: BP 126/75
== END 2023-04-30 12:04 | disposition home health service (06) | DRG 65 ==
PROVIDERS: ADMIT Physical Medicine & Rehabilitation Spinal Cord Injury Medicine; ATTEND Internal Medicine
DX: I63.9 Cerebral infarction, unspecified (principal); E44.1 Mild protein-calorie malnutrition; F01.53 Vascular dementia, unspecified severity, with mood disturbance; I31.39 Other pericardial effusion (noninflammatory); I69.351 Hemiplegia and hemiparesis following cerebral infarction affecting right dominant side; F11.20 Opioid dependence, uncomplicated; E03.9 Hypothyroidism, unspecified; E78.5 Hyperlipidemia, unspecified; E87.6 Hypokalemia; B35.1 Tinea unguium; E55.9 Vitamin D deficiency, unspecified; E78.00 Pure hypercholesterolemia, unspecified; E83.42 Hypomagnesemia; I27.20 Pulmonary hypertension, unspecified; R53.81 Other malaise; M48.061 Spinal stenosis, lumbar region without neurogenic claudication; G89.4 Chronic pain syndrome; I10 Essential (primary) hypertension; I48.0 Paroxysmal atrial fibrillation; J45.909 Unspecified asthma, uncomplicated; I69.320 Aphasia following cerebral infarction; I69.322 Dysarthria following cerebral infarction; I69.392 Facial weakness following cerebral infarction; Z91.199 Patient's noncompliance with other medical treatment and regimen due to unspecified reason; Z91.81 History of falling; Z82.49 Family history of ischemic heart disease and other diseases of the circulatory system; I69.391 Dysphagia following cerebral infarction; Z68.29 Body mass index [BMI] 29.0-29.9, adult; Z88.8 Allergy status to other drugs, medicaments and biological substances; R94.6 Abnormal results of thyroid function studies; R73.9 Hyperglycemia, unspecified
CPT/HCPCS: 36415; 80048; 80053; 82140; 82306; 82533; 82550; 82607; 82728; 82746; 82962; 83036; 83735; 84100; 84134; 84439; 84443; 85025; 92523; 92610; 93005; 93306; 93970; 97110; 97112; 97116; 97150; 97163; 97167; 97530; 97535; C1893; J0696; J1644; J3475; J7060